=== PATIENT | female | born 1970 | race African-American/Black ===

== ENCOUNTER 2019-09-20 22:56 | Emergency (ER) | payer MEDICAID ==
[~2019-09-20] VITALS: Ht 160 cm; Wt 54.0 kg
[2019-09-21] MEDS ORDERED: ONDANSETRON HCL 4MG/2ML INJ IV STA (02:15)
[2019-09-21] MEDS ORDERED: SODIUM CHLORIDE 0.9% 1,000 ML IV ONE (02:15)
[2019-09-21] MEDS ORDERED: MORPHINE SULFATE 4 MG/ML CPJ (NOT FOR IM USE) IV STA (02:15)
[2019-09-21 03:03] LABS: BASOPHILS % 0.2 % (0.0-2.0); EOSINOPHILS % 0.2 % (0.0-5.0); HEMATOCRIT. 38.9 % (36.0-48.0); HEMOGLOBIN. 13.4 g/dL (12.0-16.0); LYMPHOCYTES % 9.8 % (20.0-50.0); MEAN CORPUSCULAR VOLUME 89.8 fL (81.0-99.0); MEAN PLATELET VOLUME 9.4 fl (7.4-10.4); MONOCYTES % 4.3 % (2.0-8.0); NEUTROPHILS % 85.5 % (40.0-76.0); PLATELET 221 x1000/uL (130-400); RED BLOOD CELL COUNT 4.33 mill/uL (4.2-5.4); RED CELL DISTRIBUTION WIDTH 13.9 % (11.6-14.6)
[2019-09-21 03:04] LABS: CHLORIDE 104 mEq/L (98-107)
[2019-09-21] MEDS ORDERED: POTASSIUM CHLORIDE 20MEQ TABLET SR PO ONE (05:45)
[2019-09-21 07:42] LABS: CLARITY URINE CLOUDY (CLEAR); COLOR URINE ORANGE (YELLOW); KETONES URINE NEGATIVE (NEGATIVE); LEUKOCYTE ESTERASE URINE 1+ (NEGATIVE); NITRITE URINE NEGATIVE (NEGATIVE); OCCULT BLOOD URINE 3+ (NEGATIVE); PH URINE 6.5 (4.5-8.0); PROTEIN URINE 3+ (NEGATIVE); SPECIFIC GRAVITY URINE 1.017 (1.005-1.030); UROBILINOGEN URINE 0.2 E.U./dL (0.2-1.0)
[2019-09-21] MEDS ORDERED: MORPHINE SULFATE 2 MG/ML CPJ (NOT FOR IM USE) IV NR (11:00)
[2019-09-21] MEDS ORDERED: ONDANSETRON HCL 4MG/2ML INJ IV NR (11:00)
[2019-09-21 13:23] VITALS: BP 160/87
== END 2019-09-21 13:30 | disposition short-term general hospital (02) ==
LOC: ER 22:56 → CANBEDREQ 09-21 12:30 → ER 09-21 13:30
DX: E87.6 Hypokalemia (principal); N17.9 Acute kidney failure, unspecified; M32.9 Systemic lupus erythematosus, unspecified; J45.909 Unspecified asthma, uncomplicated; I10 Essential (primary) hypertension; Z88.0 Allergy status to penicillin
CPT/HCPCS: 36415; 74176; 80053; 81003; 83605; 83690; 85025; 96361; 96374; 96375; 96376; 99285; J2270; J2405; J7030

== ENCOUNTER 2020-06-21 16:04 | Emergency (ER) | payer MEDICAID, OTHER ==
[~2020-06-21] VITALS: Ht 162.6 cm; Wt 64.0 kg
[2020-06-21 16:14] VITALS: BP 164/79
[2020-06-21] MEDS ORDERED: ACETAMINOPHEN 325MG TABLET PO STA (16:39)
[2020-06-21 17:49] LABS: BASOPHILS % 1.9 % (0.0-2.0); EOSINOPHILS % 0.5 % (0.0-5.0); HEMATOCRIT. 29.6 % (36.0-48.0); HEMOGLOBIN. 9.9 g/dL (12.0-16.0); LYMPHOCYTES % 19.2 % (20.0-50.0); MEAN CORPUSCULAR HEMOGLOBIN 30.1 pg (28.0-32.0); MEAN CORPUSCULAR VOLUME 90.2 fL (81.0-99.0); MEAN PLATELET VOLUME 8.7 fl (7.4-10.4); NEUTROPHILS % 64.4 % (40.0-76.0); PLATELET 148 x1000/uL (130-400); RED BLOOD CELL COUNT 3.28 mill/uL (4.2-5.4); RED CELL DISTRIBUTION WIDTH 18.4 % (11.6-14.6)
[2020-06-21 17:53] LABS: CLARITY URINE CLOUDY (CLEAR); COLOR URINE DARK YELLOW (YELLOW); KETONES URINE TRACE (NEGATIVE); LEUKOCYTE ESTERASE URINE 1+ (NEGATIVE); NITRITE URINE NEGATIVE (NEGATIVE); OCCULT BLOOD URINE TRACE (NEGATIVE); PH URINE 5.5 (4.5-8.0); PROTEIN URINE 3+ (NEGATIVE); SPECIFIC GRAVITY URINE 1.027 (1.005-1.030)
[2020-06-21 17:58] LABS: CHLORIDE 108 mEq/L (98-107)
== END 2020-06-21 20:16 | disposition home or self-care (01) ==
LOC: ER 16:04
DX: N30.00 Acute cystitis without hematuria (principal); R21 Rash and other nonspecific skin eruption; F41.9 Anxiety disorder, unspecified; M32.9 Systemic lupus erythematosus, unspecified; I10 Essential (primary) hypertension; J44.9 Chronic obstructive pulmonary disease, unspecified; F14.10 Cocaine abuse, uncomplicated; Z88.0 Allergy status to penicillin
CPT/HCPCS: 36415; 71045; 80053; 81003; 85025; 87077; 99285

== ENCOUNTER 2020-06-22 20:54 | Emergency (ER) | payer MEDICAID ==
[~2020-06-22] VITALS: Ht 160 cm; Wt 59.0 kg
[2020-06-22] MEDS ORDERED: FAMOTIDINE 20MG/2ML VIAL IV STA (22:04)
[2020-06-22] MEDS ORDERED: MAGNESIUM/ALUMINUM HYDROXIDE/SIMETHICONE 30ML UDC PO STA (22:04)
[2020-06-22] MEDS ORDERED: SODIUM CHLORIDE 0.9% 1,000 ML IV ONE (22:15)
[2020-06-22] MEDS ORDERED: ONDANSETRON HCL 4MG/2ML INJ IV ONE (22:15)
[2020-06-22] MEDS ORDERED: ACETAMINOPHEN 325MG TABLET PO SCH (23:45)
[2020-06-23 01:06] LABS: BASOPHILS % 0.9 % (0.0-2.0); HEMATOCRIT. 28.7 % (36.0-48.0); HEMOGLOBIN. 9.7 g/dL (12.0-16.0); MEAN CORPUSCULAR HEMOGLOBIN 30.2 pg (28.0-32.0); MEAN CORPUSCULAR VOLUME 89.1 fL (81.0-99.0); MEAN PLATELET VOLUME 9.2 fl (7.4-10.4); MONOCYTES % 13.1 % (2.0-8.0); PLATELET 132 x1000/uL (130-400); RED BLOOD CELL COUNT 3.22 mill/uL (4.2-5.4); RED CELL DISTRIBUTION WIDTH 17.6 % (11.6-14.6)
[2020-06-23 01:12] LABS: CHLORIDE 105 mEq/L (98-107)
[2020-06-23] MEDS ORDERED: MAGNESIUM/ALUMINUM HYDROXIDE/SIMETHICONE 30ML UDC PO SCH (04:00)
[2020-06-23] MEDS ORDERED: SODIUM CHLORIDE 0.9% 500 ML IV ONE (04:00)
[2020-06-23] MEDS ORDERED: FAMOTIDINE 20MG/2ML VIAL IV SCH (04:00)
[2020-06-23] MEDS ORDERED: ONDANSETRON HCL 4MG/2ML INJ IV SCH (04:00)
[2020-06-23] MEDS ORDERED: AZTREONAM 2 GM in DEXT 5% WATER 100 ML IV SCH (05:00)
[2020-06-23 05:43] LABS: CLARITY URINE CLOUDY (CLEAR); COLOR URINE YELLOW (YELLOW); KETONES URINE 1+ (NEGATIVE); LEUKOCYTE ESTERASE URINE 1+ (NEGATIVE); NITRITE URINE NEGATIVE (NEGATIVE); OCCULT BLOOD URINE 2+ (NEGATIVE); PH URINE 5.5 (4.5-8.0); PROTEIN URINE 4+ (NEGATIVE)
[2020-06-23 05:47] VITALS: BP 162/100
== END 2020-06-23 11:55 | disposition short-term general hospital (02) ==
LOC: ER 20:54 → CANBEDREQ 06-23 12:11
DX: R11.2 Nausea with vomiting, unspecified (principal); I10 Essential (primary) hypertension; Z90.89 Acquired absence of other organs; Z88.0 Allergy status to penicillin; Z59.0 Homelessness
CPT/HCPCS: 36415; 80053; 81003; 83605; 83690; 85025; 87040; 87086; 96361; 96365; 96375; 99285; J2405; J3490; J7030; J7060; Z7610

== ENCOUNTER 2020-09-29 12:25 | Emergency (ER) | payer MEDICAID ==
[~2020-09-29] VITALS: Ht 162.6 cm; Wt 68.0 kg
[2020-09-29] MEDS ORDERED: HYDROCODONE/ACETAMINOPHEN 5/325MG TABLET PO ONE (13:30)
[2020-09-29] MEDS ORDERED: TOPUD MT (16:20)
[2020-09-29 16:25] VITALS: BP 140/79
== END 2020-09-29 16:44 | disposition home or self-care (01) ==
LOC: ER 12:25
DX: M79.605 Pain in left leg (principal); F14.10 Cocaine abuse, uncomplicated; F12.10 Cannabis abuse, uncomplicated; I11.0 Hypertensive heart disease with heart failure; I50.9 Heart failure, unspecified; J44.1 Chronic obstructive pulmonary disease with (acute) exacerbation; Z98.890 Other specified postprocedural states; Z90.89 Acquired absence of other organs; Z88.0 Allergy status to penicillin
CPT/HCPCS: 73552; 93005; 99283; Z7610

== ENCOUNTER 2020-10-25 16:27 | Emergency (ER) | payer MEDICAID ==
[~2020-10-25] VITALS: Ht 162.6 cm; Wt 64.0 kg
[~2020-10-25 16:27] MED LIST: TOPUD MT
[2020-10-25 16:34] VITALS: BP 118/64
== END 2020-10-25 17:21 | disposition home or self-care (01) ==
LOC: ER 16:27
DX: Z11.52 Encounter for screening for COVID-19 (principal)
CPT/HCPCS: 99281